=== PATIENT | female | born 1995 | race African-American/Black ===

== ENCOUNTER 2022-12-03 01:27 | Emergency (ER) | payer MEDICAID ==
[~2022-12-03] VITALS: Ht 177.8 cm; Wt 100.0 kg
[2022-12-03 01:37] VITALS: BP 137/91
[2022-12-03] MEDS ORDERED: TOPUD MT (16:10)
[2022-12-03] MEDS ORDERED: AMOX1TAB16 MT (16:10)
== END 2022-12-03 02:27 | disposition left against medical advice (07) ==
LOC: ER 01:27
DX: Z53.21 Procedure and treatment not carried out due to patient leaving prior to being seen by health care provider (principal)
CPT/HCPCS: 99281

== ENCOUNTER 2022-12-03 08:59 | Emergency (ER) | payer MEDICAID, OTHER ==
[~2022-12-03] VITALS: Ht 175.3 cm; Wt 95.0 kg
[2022-12-03 09:01] VITALS: BP 135/88
[2022-12-03] MEDS ORDERED: CEFTRIAXONE 1GM PREMIX 50 ML IV ONE (09:30)
[2022-12-03] MEDS ORDERED: CLINDAMYCIN 600 MG in DEXTROSE 5% WATER 50 ML IV ONE (09:30)
[2022-12-03 09:53] LABS: BASOPHILS % 0.4 % (0.0-2.0); EOSINOPHILS % 0.9 % (0.0-5.0); HEMATOCRIT. 36.6 % (36.0-48.0); HEMOGLOBIN. 12.6 g/dL (12.0-16.0); MEAN CORPUSCULAR HEMOGLOBIN 29.2 pg (28.0-32.0); MEAN CORPUSCULAR VOLUME 84.8 fL (81.0-99.0); MEAN PLATELET VOLUME 6.6 fl (7.4-10.4); MONOCYTES % 7.2 % (2.0-8.0); NEUTROPHILS % 74.5 % (40.0-76.0); PLATELET 392 x1000/uL (130-400); RED BLOOD CELL COUNT 4.31 mill/uL (4.2-5.4); RED CELL DISTRIBUTION WIDTH 14.3 % (11.6-14.6)
[2022-12-03] MEDS ORDERED: CLINDAMYCIN 600MG PREMIX 50 ML IV NR (10:00)
[2022-12-03 10:01] LABS: CHLORIDE 106 mEq/L (98-107)
[2022-12-03 12:03] LABS: CLARITY URINE TURBID (CLEAR); COLOR URINE DARK YELLOW (YELLOW); KETONES URINE NEGATIVE (NEGATIVE); LEUKOCYTE ESTERASE URINE 1+ (NEGATIVE); NITRITE URINE POSITIVE (NEGATIVE); OCCULT BLOOD URINE 1+ (NEGATIVE); PROTEIN URINE 1+ (NEGATIVE); SPECIFIC GRAVITY URINE 1.034 (1.005-1.030)
[2022-12-03] MEDS ORDERED: IOHEXOL-300 100 ML BOTTLE ONE (14:50)
[2022-12-03] MEDS ORDERED: TETRACAINE/BENZOCAINE/BUTAMBEN 20 GM SPRAY MM NR (15:00)
[2022-12-03] MEDS ORDERED: LIDOCAINE HCL/EPINEPHRINE 1%-EPI 1:100,000 50 ML VIAL INFIL ONE (15:00)
[2022-12-03] MEDS ORDERED: LIDOCAINE 1%/EPI 1:200,000 10 ML VIAL IJ NR (15:30)
[2022-12-03] MEDS ORDERED: DEXAMETHASONE 10 MG/ML VIAL IM ONE (16:00)
[2022-12-03] MEDS ORDERED: AMOX1TAB16 MT (16:10)
[2022-12-03] MEDS ORDERED: TOPUD MT (16:10)
== END 2022-12-03 17:55 | disposition home or self-care (01) ==
LOC: ER 08:59
DX: R13.10 Dysphagia, unspecified (principal); J03.91 Acute recurrent tonsillitis, unspecified; I49.9 Cardiac arrhythmia, unspecified
CPT/HCPCS: 36415; 70491; 71045; 80053; 81003; 81025; 83880; 84443; 84484; 85025; 87086; 93005; 96365; 96367; 96372; 99285; J0696; J1100; J3490; Q9967; Z7610; J7060